=== PATIENT | male | born 1975 ===

== ENCOUNTER 2023-07-17 11:15 | Inpatient (IN) | payer OTHER ==
[~2023-07-17] VITALS: Ht 177.8 cm; Wt 79.4 kg
[2023-07-17] MEDS ORDERED: COZAAR25 MG (14:15)
[2023-07-18 09:30] LABS: COL EPI 110 SECONDS (82-175)
[2023-07-18 09:36] LABS: INR 1.14; PROTHROMBIN TIME 11.9 SECONDS (9.0-11.5)
[2023-07-22] MEDS ORDERED: FOLIC ACID1 MG (07:42)
[2023-07-22] MEDS ORDERED: METRONIDAZOLE/SODIUM CHLORIDE 500 MG/100 ML PIGGYBACK IV ONE ×2 (09:57→11:15)
[2023-07-22] MEDS ORDERED: LIDOCAINE HCL 1%/Epi 20ML VIAL IJ ONE ×2 (09:57→11:15)
[2023-07-22] MEDS ORDERED: BUPIVACAINE HCL/PF 0.5% 30ML ML ONE (09:57)
[2023-07-22] MEDS ORDERED: CEFTRIAXONE SODIUM 2,000 MG VIAL ONE (09:57)
[2023-07-22] MEDS ORDERED: BUPIVACAINE HCL 30 ML VIAL IJ ONE (11:15)
[2023-07-22] MEDS ORDERED: CEFTRIAXONE SODIUM 2,000 MG VIAL IV ONE (11:15)
[2023-07-22] MEDS ORDERED: ENALAPRILAT DIHYDRATE 1.25 MG/ML VIAL IV PRN (15:45)
[2023-07-22] MEDS ORDERED: OxyCODONE HCL 5 MG TABLET (ROXICODONE) PO PRN (16:30)
[2023-07-22] MEDS ORDERED: MORPHINE SULFATE 4 MG/ML CARTRIDGE IV PRN (16:30)
[2023-07-22] MEDS ORDERED: RINGERS SOLUTION,LACTATED 1,000 ML IV SCH (16:30)
[2023-07-22] MEDS ORDERED: ONDANSETRON HCL 2 MG/ML VIAL IV PRN (16:30)
[2023-07-22] MEDS ORDERED: SIMETHICONE 125 MG CAPSULE PO SCH (17:00)
[2023-07-22] MEDS ORDERED: METOCLOPRAMIDE HCL 5 MG/ML VIAL IV SCH (17:00)
[2023-07-22] MEDS ORDERED: HYOSCYAMINE SULFATE 0.125 MG TAB.SUBL SL SCH (17:00)
[2023-07-22] MEDS ORDERED: CELECOXIB 200 MG CAPSULE PO SCH (17:00)
[2023-07-22] MEDS ORDERED: GABAPENTIN 300 MG CAPSULE PO SCH (17:00)
[2023-07-22] MEDS ORDERED: POLYETHYLENE GLYCOL 3350 17 GM BLIST.PACK PO SCH (17:00)
[2023-07-22] MEDS ORDERED: HYOSCYAMINE SULFATE 0.125 MG TAB.SUBL ONE (18:21)
[2023-07-22] MEDS ORDERED: SIMETHICONE 125 MG CAPSULE PO ONE (18:21)
[2023-07-22] MEDS ORDERED: METOCLOPRAMIDE HCL 5 MG/ML VIAL ONE (18:21)
[2023-07-22] MEDS ORDERED: GABAPENTIN 300 MG CAPSULE PO ONE (18:21)
[2023-07-22 18:36] LABS: HEMATOCRIT 36.3 % (39.0-48.0); HEMOGLOBIN 12.6 g/dL (13-16.00); MEAN CORPUSCULAR HEMOGLOBIN 31.8 pg (27.00-32.0); MEAN CORPUSCULAR HGB CONC 34.6 g/dl (32.0-36.0); PLATELET COUNT 144 K/uL (150-450); RED BLOOD COUNT 3.95 M/uL (4.00-6.00); RED CELL DISTRIBUTION WIDTH 13.8 % (11.5-14.5)
[2023-07-22] MEDS ORDERED: ACETAMINOPHEN 500 MG GEL..CAP PO SCH (20:00)
[2023-07-22] MEDS ORDERED: FAMOTIDINE/PF 20 MG/2 ML VIAL IV PUSH SCH (21:00)
[2023-07-23 06:54] LABS: ALBUMIN 3.2 gm/dL (3.4-5.0); CALCIUM 8.3 mg/dL (8.5-10.1); CREATININE SERUM 0.85 mg/dL (0.70-1.30); GFR 95.41; POTASSIUM 4.09 mEq/L (3.5-5.1)
[2023-07-23 06:58] LABS: HEMOGLOBIN 11.2 g/dL (13-16.00); MEAN CELL VOLUME 91.2 fL (80.0-100.00); MEAN CORPUSCULAR HGB CONC 35.1 g/dl (32.0-36.0); PLATELET COUNT 159 K/uL (150-450); RED BLOOD COUNT 3.51 M/uL (4.00-6.00); RED CELL DISTRIBUTION WIDTH 13.5 % (11.5-14.5)
[2023-07-23 07:05] LABS: PHOSPHOROUS 1.9 mg/dL (2.5-4.9)
[2023-07-23] MEDS ORDERED: PANTOPRAZOLE SODIUM 40 MG/VIAL VIAL IV STA (08:48)
[2023-07-23] MEDS ORDERED: LACTOBACILLUS ACIDOPHILUS 1 CAP CAP PO SCH (09:00)
[2023-07-23] MEDS ORDERED: LOSARTAN POTASSIUM 25 MG TABLET PO SCH (09:00)
[2023-07-23] MEDS ORDERED: LACTULOSE 20 G/30 ML BLIST.PACK PO SCH (09:00)
[2023-07-23] MEDS ORDERED: POTASSIUM PHOS,M-BASIC-D-BASIC 3 MM/ML VIAL IV ONE (09:00)
[2023-07-23] MEDS ORDERED: AMINOCAPROIC ACID 250 MG/ML VIAL IV STA (11:21)
[2023-07-23] MEDS ORDERED: PYRIDOXINE HCL 50 MG TABLET PO SCH (12:58)
[2023-07-23] MEDS ORDERED: Cyanocobalamin/Mecobalamin 1 TAB.SL SL SCH (12:58)
[2023-07-23] MEDS ORDERED: SOD FERRIC GLUC COMPLX/SUCROSE 62.5 MG in 0.9 % SODIUM CHLORIDE 50 ML IV SCH (12:58)
[2023-07-23 14:58] LABS: HEMATOCRIT 28.6 % (39.0-48.0); HEMOGLOBIN 10.1 g/dL (13-16.00); MEAN CELL VOLUME 92.1 fL (80.0-100.00); MEAN CORPUSCULAR HEMOGLOBIN 32.5 pg (27.00-32.0); MEAN CORPUSCULAR HGB CONC 35.3 g/dl (32.0-36.0); RED CELL DISTRIBUTION WIDTH 13.4 % (11.5-14.5)
[2023-07-23 15:18] LABS: PLATELET COUNT 130 K/uL (150-450)
[2023-07-23] MEDS ORDERED: ENOXAPARIN SODIUM 40 MG/0.4 ML SYRINGE SUBCUTANEO SCH (17:00)
[2023-07-23] MEDS ORDERED: AMINOCAPROIC ACID 250 MG/ML VIAL IV SCH (18:00)
[2023-07-24 05:38] LABS: HEMATOCRIT 26.1 % (39.0-48.0); MEAN CELL VOLUME 92.6 fL (80.0-100.00); MEAN CORPUSCULAR HEMOGLOBIN 31.9 pg (27.00-32.0); MEAN CORPUSCULAR HGB CONC 34.7 g/dl (32.0-36.0); RED BLOOD COUNT 2.82 M/uL (4.00-6.00); RED CELL DISTRIBUTION WIDTH 13.6 % (11.5-14.5)
[2023-07-24 05:39] LABS: PLATELET COUNT 81 K/uL (150-450)
[2023-07-24] MEDS ORDERED: PANTOPRAZOLE SODIUM 40 MG/VIAL VIAL IV SCH (06:00)
[2023-07-24 06:02] LABS: CALCIUM 7.9 mg/dL (8.5-10.1); CREATININE SERUM 0.72 mg/dL (0.70-1.30); GFR 115.55; POTASSIUM 3.95 mEq/L (3.5-5.1)
[2023-07-24] MEDS ORDERED: FUROsemide 20 MG/2 ML VIAL IV SCH (06:30)
[2023-07-24 06:33] LABS: PHOSPHOROUS 1.3 mg/dL (2.5-4.9)
[2023-07-24] MEDS ORDERED: ENOXAPARIN SODIUM 40 MG/0.4 ML SYRINGE SUBCUTANEO SCH (09:00)
[2023-07-24] MEDS ORDERED: POTASSIUM PHOS,M-BASIC-D-BASIC 15 MM in 0.9 % SODIUM CHLORIDE 250 ML IV ONE (12:00)
[2023-07-25 11:53] LABS: HEMATOCRIT 35.9 % (39.0-48.0); HEMOGLOBIN 12.4 g/dL (13-16.00); MEAN CELL VOLUME 90.3 fL (80.0-100.00); MEAN CORPUSCULAR HEMOGLOBIN 31.2 pg (27.00-32.0); MEAN CORPUSCULAR HGB CONC 34.6 g/dl (32.0-36.0); RED BLOOD COUNT 3.98 M/uL (4.00-6.00); RED CELL DISTRIBUTION WIDTH 14.1 % (11.5-14.5)
[2023-07-25 11:56] LABS: PLATELET COUNT 110 K/uL (150-450)
[2023-07-25 12:40] LABS: MANUAL PLATELET COUNT 170
[2023-07-25 13:41] LABS: CALCIUM 8.8 mg/dL (8.5-10.1); CREATININE SERUM 0.84 mg/dL (0.70-1.30); GFR 96.72; POTASSIUM 3.9 mEq/L (3.5-5.1)
[2023-07-25 13:51] LABS: PHOSPHOROUS 1.6 mg/dL (2.5-4.9)
[2023-07-25] MEDS ORDERED: POTASSIUM PHOS,M-BASIC-D-BASIC 15 MM in 0.9 % SODIUM CHLORIDE 250 ML IV ONE (14:00)
[2023-07-25 23:16] LABS: HEMATOCRIT 34.4 % (39.0-48.0); MEAN CELL VOLUME 89.1 fL (80.0-100.00); MEAN CORPUSCULAR HGB CONC 34.8 g/dl (32.0-36.0); RED BLOOD COUNT 3.86 M/uL (4.00-6.00); RED CELL DISTRIBUTION WIDTH 14.5 % (11.5-14.5)
[2023-07-25 23:40] LABS: PLATELET COUNT 95 K/uL (150-450)
[2023-07-26 06:58] LABS: HEMATOCRIT 35.6 % (39.0-48.0); HEMOGLOBIN 12.4 g/dL (13-16.00); MEAN CELL VOLUME 89.7 fL (80.0-100.00); MEAN CORPUSCULAR HEMOGLOBIN 31.4 pg (27.00-32.0); RED BLOOD COUNT 3.96 M/uL (4.00-6.00); RED CELL DISTRIBUTION WIDTH 14.1 % (11.5-14.5)
[2023-07-26 07:28] LABS: PLATELET COUNT 100 K/uL (150-450)
== END 2023-07-27 15:33 | disposition home or self-care (01) | DRG 330 ==
LOC: O/R 07-22 05:40 → SURH 07-22 11:15 → SURG 07-22 14:10 → SURH 07-22 15:00 → SURG 07-27 15:33
PROVIDERS: Internal Medicine Geriatric Medicine; ADMIT Colon & Rectal Surgery; ATTEND Colon & Rectal Surgery
PROC: 0DBP4ZZ Excision of Rectum, Percutaneous Endoscopic Approach (ICD-10-PCS; 2023-07-22)
PROC: 0TQB4ZZ Repair Bladder, Percutaneous Endoscopic Approach (ICD-10-PCS; 2023-07-22)
PROC: 0DUU47Z Supplement Omentum with Autologous Tissue Substitute, Percutaneous Endoscopic Approach (ICD-10-PCS; 2023-07-22)
PROC: 0DTN4ZZ Resection of Sigmoid Colon, Percutaneous Endoscopic Approach (ICD-10-PCS; principal; 2023-07-22 15:00)
DX: K57.20 Diverticulitis of large intestine with perforation and abscess without bleeding (principal); N32.1 Vesicointestinal fistula